=== PATIENT | female | born 1970 | race Caucasian/White ===

== ENCOUNTER 2022-04-23 06:28 | Day surgery (SDC) | payer OTHER, SELFPAY ==
[2022-04-23] VITALS (27 sets, daily range): BP systolic 95–122; BP diastolic 43–80; PULSE 55–83; RESP 14–20; TEMP 35.8–36.7; O2SAT 91–98; BMI 33.5
[2022-04-23 07:04] LABS: Hemoglobin* 15.3 gm/dL (12.0-16.0)
[2022-04-23 07:12] LABS: Ur HCG Qualitative* Negative (Negative)
[2022-04-23] MEDS: SODIUM CHLORIDE 0.9 % (FLUSH) 10 ML SYRINGE IVF (07:20)
[2022-04-23] MEDS: LACTATED RINGERS 1000 ML 1,000 ML 125 ML IV ×2 (07:20→12:02)
--- NOTE | 2022-04-23 07:51 | P.PCN_ITS ---
Procedure Note Time Seen by Provider: 07:51 Date Seen: 04/23/22 Date of procedure: 04/23/22 Will [facility] bill your pro fee for this procedure?: Yes Procedure Description: Preoperative diagnosis: 58-year-old 2 para 2 with pelvic organ prolapse who desires surgical treatment. Postoperative diagnosis: Same Procedure: Total vaginal hysterectomy, Bilateral salpingectomy, anterior and posterior repair. Fernandez's culdoplasty. Anesthesia: General endotracheal spinal, MAC, local Surgeon: Margie Canela MD assistant casino shift manager: Claudia Evans MD Second first assistant manager: EL Van EBL: One hundred mL IV Fluid: 800 mL Urine output: 100 mL Drains: Frias to gravity: Clear urine at the end of the procedure., Vaginal pack in place Specimen: Uterus with cervix and tubes to pathology Findings: On exam under anesthesia: Uterus is mid position, less than 8 week size. Prolapse: Grade 3-4 cystocele, grade 3 uterine prolapse, grade 1rectocele primarily with in the vaginal canal. The perineal body is well mercado pported.. Other: tubes showed evidence of previous tubal ligation. Ovaries Are normal in appearance. Procedure: Grecia was taken to the operating room where general anesthesia was found be adequate. She is placed in the dorsal lithotomy position and an exam under anesthesia performed with the findings stated above. She was then prepped and draped in a sterile manner. A Frias catheter was placed. A weighted speculum was placed in the posterior aspect of the vaginal introitus. The cervix was grasped with 2 single-toothed tenaculums and the cervix circumferentially injected dilute vasopressin, 20 units diluted in 50 mL of saline. A circumferential incision was made around the cervix with a scalpel. The anterior vaginal mucosa was grasped with an Allis clamp and the anterior cul- de-sac formed with Metzenbaum scissors. The peritoneum was grasped an with toothed forceps and the peritoneum entered sharply with Metzenbaum scissors. This opening was extended with blunt pressure and a Nesbit retractor placed through the opening. The posterior cul-de-sac was entered sharply with Rubio scissors and a long weighted speculum was placed. Pedicles of the hysterectomy were formed using Ellie clamps. All pedicles were Ellie transfixed. The 1st pedicle was formed on the patient's left incorporating the uterosacral ligament. This was divided and Hilton transfixed. These sutures were tagged with a small clamp. The right uterosacral ligament was grasped in the 1st right pedicle that pedicle was divided, Ellie transfixed in the sutures held with a small Mag clamp. Sequential pedicles were then formed using Hilton clamps, all pedicles were divided sharply and Ellie transfixed. At the level of the cornea at the utero ovarian ligament ligament were cross-clamped with a Hilton clamp and divided. The cornual pedicles were doubly suture ligated: 1st with an 0 Vicryl free tie followed by an 0 Vicryl stick tie in a fore and aft manner. All pedicles were noted to be hemostatic. A Fernandez's culdoplasty was/was not performed. The long weighted speculum was removed and the short weighted speculum replaced in the vaginal introitus. The peritoneum was identified circumferentially and grasped with 2 Allis clamps.The peritoneum was closed using a 3-0 Vicryl in a purse-string manner. The weighted speculum removed. The vaginal cuff was re-approximated using 0 Vicryl sutures in a figure of X manner. The uterosacral pedicles were incorporated into each apex of the vaginal cuff. Excellent hemostasis was noted. Attention was turned to performing the anterior repair. Allis clamp was placed in the midline of the anterior vaginal mucosa approximately 1 cm under the urethral meatus. Two additional Allis clamps were placed 1 just superior to each apex of the vaginal cuff repair. 1% lidocaine with epinephrine was injected between the 2 Allis clamps just above the cuff and in the midline to the Allis that was placed below the urethral meatus. A horizontal incision was then made between the 2 Allis clamps just above the vaginal cuff. Is vaginal mucosa was undermined with the Metzenbaum scissors. The excess mucosa was grasped with a combination of Schaffer and Allis clamps. The underlying fascial tissue was mobilized from the vaginal mucosa using an open Ray-Mariia sponge. Two 0 Vicryl interrupted sutures were used to grasp the lateral vaginal fascial t issue and tied together in the midline. The excess vaginal mucosa was then removed and the remaining vertical incision was re-approximated using 3-0 Vicryl in a running locked manner. Excellent hemostasis verified. Attention was turned to performing the posterior repair. An Allis clamp was placed at the apex of the posterior repair in the midline of the vaginal mucosa posteriorly, 2 Allis clamps were placed in the posterior introitus approximately 1 cm within the introitus. 1% lidocaine with epinephrine was instilled between the 2 horizontal clamps and in the midline to the apical clamp. A horizontal incision was made between the 2 most proximal Allis clamps and a horizontal midline incision was made from the apex clamp to the midline horizontal incision. The vaginal mucosa was then undermined with Metzenbaum scissors and the vaginal fascia was mobilized from the mucosa using a Ray-Mariia sponge. The lateral vaginal fascia was then reapproximated using 2 0 Vicryl interrupted sutures. The excess mucosal tissue was removed and the remaining incision reapproximated using 3-0 Vicryl in a running locked manner. Hemostasis verified. A vaginal pack with Premarin cream was placed in the vaginal canal to be removed tomorrow morning by the physician. Sponge, lap and instrument counts were correct x2 at the end of the procedure and the patient was taken to the recovery room in stable condition. Prior to the procedure the patient received: 2g Ancef for antibiotic prophylaxis Surgeon: Margie Canela MD
[2022-04-23] MEDS: CEFAZOLIN 2 GM INJ IVP (08:02)
[2022-04-23] MEDS: VASOPRESSIN 20 UNIT/ML INJ INJECTION (08:24)
[2022-04-23] MEDS: ESTROGENS, CONJUGATED VAGINAL 0.625 MG/G CREAM 1 APPLIC VAGINAL (09:24)
--- NOTE | 2022-04-23 11:28 | W.ANESCHARGE ---
Anesthesia Charges Start Date/Time Anesthesia Start Date: 04/23/22 Anesthesia Start Time: 07:44 Stop Date/Time Anesthesia Stop Date: 04/23/22 Anesthesia Stop Time: 10:00 Summary Emergency: No
[2022-04-23] MEDS: KETOROLAC 30 MG/ML inj IVP ×2 (11:36→17:00)
[2022-04-23] MEDS: diphenhydrAMINE 50 MG/ML inj 12.5 MG IVP (11:37)
--- NOTE | 2022-04-23 14:00 | W.ANESCHARGE ---
Anesthesia Charges Start Date/Time Anesthesia Start Date: 04/23/22 Anesthesia Start Time: 07:44 Stop Date/Time Anesthesia Stop Date: 04/23/22 Anesthesia Stop Time: 10:00 Summary Emergency: No
--- NOTE | 2022-04-23 15:20 | PC.NURSE ---
VSS AND AFEBRILE. PATIENT DENIES PAIN. TOLERATING REGULAR DIET. DENIES N/V. SORIA DRAINING CLEAR, YELLOW URINE.
[2022-04-23] MEDS: SIMVASTATIN 40 MG TABLET PO (20:17)
--- NOTE | 2022-04-23 22:17 | PC.NURSE ---
Shift [id number]- Patient denies pain throughout shift- no PRN pain medications needed. She is up to chair this evening and tolerates well. Tolerating eating and drinking without issue. Frias is patent. IV is saline locked. Bowel sounds are active.
[2022-04-24] VITALS (7 sets, daily range): BP systolic 105–118; BP diastolic 66–82; PULSE 66–73; RESP 16; TEMP 36.3–36.4; O2SAT 92–96
[2022-04-24] MEDS: SODIUM CHLORIDE 0.9 % (FLUSH) 10 ML SYRINGE IVF (00:21)
[2022-04-24] MEDS: diphenhydrAMINE 50 MG/ML inj 25 MG IVP (00:21)
[2022-04-24] MEDS: IBUPROFEN 600 MG TABLET PO ×2 (00:22→07:44)
[2022-04-24] MEDS: LEVOTHYROXINE 25 MCG TABLET PO (06:17)
[2022-04-24] MEDS: LEVOTHYROXINE 112 MCG TABLET PO (06:17)
--- NOTE | 2022-04-24 06:51 | PC.NURSE ---
Shift note: The pt has been in RA with Spo2 in the 90s. No respiratory distress noted. She has been reporting mild abdominal pain; Ibuprofen was given with a good relief. The pt stated that she has been passing flatus; denied nausea or vomiting. The pt has been reporting mild itching all over; no rash or hives noted-Benadryl was given with some relief. Small serosanguineous drain noted on the underwear x1. Frias has been patent and draining adequate urine out put. While the write attempt to remove Frias Cath at 0600, the pt was very concerned about urinating with the vaginal packing and requested to wait until the vaginal packing removed- Frias left in per pt's concern and request.
[2022-04-24] MEDS: LOSARTAN POTASSIUM 50 MG TABLET 25 MG PO (08:53)
[2022-04-24] MEDS: buPROPion XL 150 MG TABLET PO (08:53)
[2022-04-24] MEDS: CITALOPRAM HYDROBROMIDE 20 MG TABLET 40 MG PO (08:54)
[2022-04-24] MEDS: DOCUSATE SODIUM 100 MG CAPSULE PO (09:33)
--- NOTE | 2022-04-24 09:50 | PM.GYNPNPO ---
DRAFTER (CAD) ELECTRONIC - A/P Postoperative Procedures: Procedures Operation Date: 04/23/22 07:45 Actual Procedure Side Surgeon p Total Vaginal Hysterectomy, bilateral salpingectomy, Anterior Repair and Posterior Repair with Fernandez's Culdoplasty Margie Canela MD Postoperative day: 1 Postoperative status: doing well Postoperative plan: routine post-op care and other (Vagianl packing removed. D/C rothman and commence voiding trial. Anticipate discharge midday. Discharge activity resctrictions and follow up instructions discussed.) Time Spent With Patient Time: Total time spent is greater than 50% in coordination of care (as documented) at patient's floor/unit and/or counseling patient: Time with patient: less than 15 minutes DRAFTER (CAD) ELECTRONIC- PN:Subj Post-Op Subjective Date Seen: 04/24/22 Post Operative Details: Post-operative day number 1: status post vaginal hysterectomy, bilateral salpingectomies, and anterior and posterior repairs with Fernandez's culdoplasty. Rothman catheter and Vaginal packing still in place. Subjective: patient has no complaints, pain is well controlled and ambulating well DRAFTER (CAD) ELECTRONIC-PN: Obj Exam Physical Exam: Vital signs: Temp Pulse Resp BP Pulse Ox 97.6 F 73 16 118/82 96 04/24/22 08:32 04/24/22 08:32 04/24/22 08:32 04/24/22 08:32 04/24/22 08:32 Constitutional: Constitutional: no acute distress Routine Respiratory Exam: Comments: Lungs clear to auscultation bilaterally/. Routine Cardiovascular Exam: Comments: Regular rate and rhythm Routine Abdominal Exam: Comments: Soft, nondistended, nontender Routine Exam: Comments: Vaginal packing removed. No active bleeding noted. Packing lightly blood-stained. Perineum intact. Urinary Catheter Management: Urethral: Cath placed during this visit: yes Urethral indwelling: Yes Reason for continuing: surgical procedure Insertion date: 04/23/22 Insertion time: 08:13
--- NOTE | 2022-04-24 13:45 | PC.NURSE ---
Discharge: Patient alert and oriented, up independently. Vitals stable and WNL. Pain well controlled with PRN medication. IV removed with catheter tip intact. Frias cath removed with tip intact, patient able to void 200cc an hour after removal. Discharge instructions given, need for follow up reviewed, new medications discussed. Questions answered as needed. Discharged @ 1330, ambulated from unit to private vehicle. Discharged to home.
== END 2022-04-24 13:30 | disposition home or self-care (01) ==
LOC: MEDSURG 06:52 → SS 08:56 → MEDSURG 08:57
PROVIDERS: PCP Physician Assistant; Visit Provider Obstetrics & Gynecology
PROC: 0TJB8ZZ Inspection of Bladder, Via Natural or Artificial Opening Endoscopic (ICD-10-PCS; CPT 57260; principal; 2022-04-23 07:45)
DX: N81.3 Complete uterovaginal prolapse (principal)
CPT/HCPCS: 58263; 57265; 00944; 36415; 81025; 85018; 86850; 86900; 86901; 88307; 94761; A9270; J0690; J1100; J1200; J1885; J2250; J2274; J2370; J2405; J2704; J3010; J7120

== ENCOUNTER 2023-12-29 12:56 | Emergency (ER) | payer OTHER, SELFPAY ==
[2023-12-29] VITALS (7 sets, daily range): BP systolic 141–147; BP diastolic 82–93; PULSE 75–90; RESP 20; TEMP 36.4; O2SAT 95–96; BMI 33.7
--- NOTE | 2023-12-29 13:28 | CT_ITS ---
Patient: ELYSE CHAVIRA Facility:?[facility] Patient ID:?[id number] Site Patient ID:?[id number]. Site :?[id number] Study:?CT-Sinus W/O-12/29/2023 1:51:27 PM Ordering Physician:IBIS Final Report: Indication: Frontal pressure Technique: CT examination of the paranasal sinuses was performed. The study was performed without contrast. Axial imaging was acquired from above the frontal sinuses through the bottom of the mandible. Sagittal and coronal reformatted imaging was performed. Please note that all CT scans at this facility use dose modulation, iterative reconstruction, and/or weight-based dosing when appropriate to reduce radiation dose to as low as reasonably achievable. Comparison: None Findings: No osseous destructive, erosive expansile lesion. No air-fluid level. Soft tissues of the nasal cavity, orbits and nasopharynx appear normal. Frontal sinuses are normally aerated without mucosal thickening or fluid. Minimal mucosal thickening of the ethmoid air cells bilaterally consistent with mild chronic mucosal inflammatory disease. Normal-appearing sphenoid sinus. Normal bilateral maxillary sinuses. Patent bilateral ostiomeatal units. Nasal septal deviation. Upper component towards the left and lower component towards the right. No visible soft tissue abnormality within the nasal cavity. No abnormal soft tissue or fluid opacification of the mastoids. 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 Minimal chronic appearing mucosal thickening of the ethmoid air cells. The paranasal sinuses are otherwise unremarkable. 2. Mild nasal septal deviation. 3. 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 Please note that all CT scans at this facility use dose modulation, iterative reconstruction, and/or weight-based dosing when appropriate to reduce radiation dose to as low as reasonably achievable. Dictated by Ruslan aLst MD @ 12/29/2023 2:03:07 PM Signed by:?Ruslan Last MD @12/29/2023 2:03:07 PM (Electronic Signature)
--- NOTE | 2023-12-29 13:28 | CT_ITS ---
Patient: ELYSE CHAVIRA Facility:?[facility] Patient ID:?[id number] Site Patient ID:?[id number]. Site :?[id number] Study:?CT-Head W/O-12/29/2023 1:50:31 PM Ordering Physician:IBIS Final Report: INDICATION: Frontal pain/pressure COMPARISON: None TECHNIQUE: CT examination of the head was performed as axial sections without intravenous contrast. Images were obtained from the vertex of the skull through the skull base. Please note that all CT scans at this facility use dose modulation, iterative reconstruction, and/or weight-based dosing when appropriate to reduce radiation dose to as low as reasonably achievable. FINDINGS: The brain shows no sign of mass lesion, mass effect, hemorrhage, or edema. The ventricles and sulci are normal in appearance for the patient`s age. The visualized portions of the orbits are normal in appearance. The osseous structures are normal in their appearance with no sign of abnormality in the skull base or calvarium. IMPRESSION: Normal unenhanced head CT. Please note that all CT scans at this facility use dose modulation, iterative reconstruction, and/or weight-based dosing when appropriate to reduce radiation dose to as low as reasonably achievable. Dictated by Ruslan Last MD @ 12/29/2023 1:58:38 PM Signed by:?Ruslan Last MD @12/29/2023 1:58:38 PM (Electronic Signature)
--- NOTE | 2023-12-29 13:36 | ED.GENADULT ---
HPI - General Adult General Chief complaint: Head Injury/Pain Stated complaint: eyes blurry, pressure in head Time Seen by Provider: 12/29/23 13:06 History of Present Illness HPI narrative: This 53-year-old female states that she has some pressure in the frontal part of her head and reports some blurry vision. These symptoms have been on and off for the past couple weeks. She called the clinic today and was told to come here to the emergency department. She states that she has been having a cough with some nasal congestion. She does not report any neurologic deficits. She arrives with normal vital signs and her eye exam shows a right eye with acuity at 20/40 and left eye it 20/25. She does not report any fevers or shortness of breath. She does not have headache and denies having any neurologic deficits. Related Data Home Medications Medication Instructions Recorded Confirmed bupropion HCl 150 mg 24 hr tablet, 150 mg PO DAILY 04/21/22 05/12/22 extended release citalopram 40 mg tablet 40 mg PO DAILY 04/21/22 05/12/22 losartan 25 mg tablet 25 mg PO DAILY 04/21/22 05/12/22 simvastatin 40 mg tablet 40 mg PO HS 04/21/22 05/12/22 sulfacetamide sodium 10 % topical applic topical BID 04/21/22 05/12/22 cream buspirone 10 mg tablet 10 mg PO BID 12/29/23 12/29/23 doxycycline monohydrate 100 mg 100 mg PO BID 12/29/23 12/29/23 capsule levothyroxine 150 mcg tablet 150 mcg PO DAILY 12/29/23 12/29/23 Previous Rx's Medication Instructions Recorded docusate sodium 100 mg capsule 100 mg PO BID PRN Constipation 04/23/22 #100 caps ibuprofen 600 mg tablet 600 mg PO Q6H PRN #30 tabs 04/23/22 methylprednisolone 4 mg tablets in See Rx Instructions PO .COMPLEX 12/29/23 a dose pack (Medrol (Rashel)) #21 ea Allergies Allergy/AdvReac Type Severity Reaction Status Date / Time No Known Allergies Allergy Verified 05/12/22 10:21 Review of Systems Status of ROS: Reports: 10 or more systems reviewed and unremarkable except as noted in History and below Narrative: Constitutional: No fevers, no weight gain or loss. Eyes: No discharge. She reports some blurry vision at times. HENT: No congestion, no sore throat, no ear pain. Cardiovascular: No chest pain, no palpitations. Respiratory: No shortness of breath, no wheezes, no cough. Gastrointestinal: No abdominal pain, no vomiting, no diarrhea. Genitourinary: No dysuria, no hematuria. Musculoskeletal: Normal range of motion. Skin: No rashes, no pruritis. Neurological: No dizziness, weakness, sensory change, speech change. Endo/Heme/Allergies: No bruising or bleeding. No polydipsia. Pysch: no suicidality, no anxiety, no insomnia. All other systems reviewed and are negative. [facility] Medical History (Updated 12/29/23 @ 14:47 by Sarwat Evangelista MD) Postoperative examination ?Z09 - Encounter for follow-up examination after completed treatment for conditions other than malignant neoplasm (ICD-10) Vaginal discharge ?N89.8 - Other specified noninflammatory disorders of vagina (ICD-10) Hypertension ?I10 - Essential (primary) hypertension (ICD-10) Vitamin D deficiency (01/26/12) ?E55.9 - Vitamin D deficiency, unspecified (ICD-10) Uterine prolapse ?N81.4 - Uterovaginal prolapse, unspecified (ICD-10) Prediabetes (11/08/17) ?R73.03 - Prediabetes (ICD-10) Obstructive sleep apnea syndrome (07/09/15) ?G47.33 - Obstructive sleep apnea (adult) (pediatric) (ICD-10) Mild episode of recurrent major depressive disorder (07/09/15) ?F33.0 - Major depressive disorder, recurrent, mild (ICD-10) Hypothyroidism (07/09/15) ?E03.9 - Hypothyroidism, unspecified (ICD-10) Hyperlipidemia (07/09/15) ?E78.5 - Hyperlipidemia, unspecified (ICD-10) Cystocele with prolapse ?N81.4 - Uterovaginal prolapse, unspecified (ICD-10) Surgical History (Updated 04/23/22 @ 07:51 by Margie Canela MD) History of total vaginal hysterectomy (TVH) (04/23/22) ?Z90.710 - Acquired absence of both cervix and uterus (ICD-10) History of tubal ligation (1995) ?Z98.51 - Tubal ligation status (ICD-10) Social History Highest level of school completed/degree received: Associate degree: occupational, technical, vocational program Smoking Status: Heavy tobacco smoker What tobacco products do you use: cigarettes Smoking packs per day: 1 Smoking cigarettes per day: 20.0 Years smoked: 2 Smoking pack-years: 2.00 Smoking quit date/years: >15 years ago Do you use any of these nicotine containing products: None Second hand tobacco smoke exposure: No How often do you have a drink containing alcohol: monthly or less Alcohol type: hard liquor How often do you have six or more drinks on one occasion: Never AUDIT-C Alcohol total score: 1 Non-prescribed substance use: denies use Caffeine: Yes service: No Exam Narrative: Exam Narrative: Constitutional: Well-developed, well-nourished, no acute distress. HEENT: Normocephalic, atraumatic. Neck: Normal range of motion. Nontender. Supple. Heart: Regular. No murmurs. Normal rate. Intact distal pulses. Lungs: Clear to auscultation. No chest discomfort. No wheezes, rhonchi, or rales. Abdomen: Normal bowel sounds. Nontender. No rebound tenderness. Genitalia: Deferred. Back: No midline tenderness. Normal range of motion. Extremities: Normal range of motion. No injury. Skin: Intact. No rash. Warm. No erythema or pallor. Neurologic: No altered sensation. No weakness. Alert and oriented. No facial asymmetry. Tongue is midline. [id number] is normal. No pronator drift. Transport Engineer strength is equal bilaterally. She is able to raise each leg to my hand. Psychiatric: No suicidality. No anxiety or depression. No insomnia. Nursing notes and vitals signs are reviewed. Const: Vital Signs, click to edit/add: Vital Signs - 24 hr 12/29/23 13:00 12/29/23 13:28 Temperature 97.6 F Pulse Rate [Pulse Oximeter] 90 77 Respiratory Rate 20 Blood Pressure [Ri ght Upper Arm] 147/85 H Pulse Oximetry 96 Oxygen Delivery Me thod Room Air Course Vital Signs Vital signs: Initial Vital Signs Temperature 97.6 F 12/29/23 13:00 Temperature Source Temporal Artery Scan 12/29/23 13:00 Pulse Rate 90 12/29/23 13:00 Respiratory Rate 20 12/29/23 13:00 Blood Pressure 147/85 H 12/29/23 13:00 Blood Pressure Mean 105 12/29/23 13:00 Blood Pressure Position Sitting 12/29/23 13:00 Pulse Oximetry 96 12/29/23 13:00 Oxygen Delivery Method Room Air 12/29/23 13:00 Vital Signs Temperature 97.6 F 12/29/23 13:00 Pulse Rate 90 12/29/23 13:00 Respiratory Rate 20 12/29/23 13:00 Blood Pressure 147/85 H 12/29/23 13:00 Pulse Oximetry 96 12/29/23 13:00 Oxygen Delivery Method Room Air 12/29/23 13:00 Temperature 97.6 F 12/29/23 13:00 Pulse Rate 77 12/29/23 13:28 Respiratory Rate 20 12/29/23 13:00 Blood Pressure 147/85 H 12/29/23 13:00 Pulse Oximetry 96 12/29/23 13:00 Oxygen Delivery Method Room Air 12/29/23 13:00 Medical Decision Making [facility] Narrative Medical decision making narrative: This patient comes in with report of some pressure in the front of her head and occasions of blurry vision happening over the past couple weeks on and off. She arrives with normal vital signs and has normal exam including normal neurologic exam. CT scan of the head and sinuses is obtained and shows no acute findings to explain the symptoms. The patient does have an appointment with an eye doctor next week. She is okay to be discharged home. She did receive an oral dose of dexamethasone 10 mg and a prescription for Medrol Dosepak. Imaging Data CT scan - head: Radiologist's impression: Normal unenhanced head CT. Minimal chronic appearing mucosal thickening of the ethmoid air cells. The paranasal sinuses are otherwise unremarkable. Mild nasal septal deviation. 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 Discharge Plan Discharge Clinical Impression: Blurred vision Patient Disposition: Home, Self-Care Condition: Stable Additional Instructions: Take medication as prescribed. Follow up with pattern layout worker as scheduled. Follow up with MD otherwise as needed or return if worsening. Prescriptions: New methylprednisolone [Medrol (Rashel)] 4 mg tablets,dose pack See Rx Instructions .ROUTE .COMPLEX Qty: 21 0RF Rx Instructions: orally per package directions No Action citalopram 40 mg tablet 40 mg PO DAILY simvastatin 40 mg tablet 40 mg PO HS losartan 25 mg tablet 25 mg PO DAILY bupropion HCl 150 mg tablet extended release 24 hr 150 mg PO DAILY sulfacetamide sodium 10 % cream TOPICAL BID docusate sodium 100 mg Capsule 100 mg PO BID PRN (Reason: Constipation) Qty: 100 0RF ibuprofen 600 mg tablet 600 mg PO Q6H PRNQty: 30 0RF doxycycline monohydrate 100 mg capsule 100 mg PO BID buspirone 10 mg tablet 10 mg PO BID levothyroxine 150 mcg tablet 150 mcg PO DAILY Follow Up/Referrals: Suzy Villareal PA [Primary Care Provider] - Stand Alone [facility] Inst[facility]
[2023-12-29] MEDS: dexAMETHasone 10 MG/ML inj PO (14:56)
== END 2023-12-29 14:59 | disposition home or self-care (01) ==
PROVIDERS: Emergency Provider Emergency Medicine Emergency Medical Services; PCP Physician Assistant
DX: H53.8 Other visual disturbances (principal)
CPT/HCPCS: 70450; 70486; 99284; 99285; J1100